=== PATIENT | male | born 1930 | race Caucasian/White ===

== ENCOUNTER 2017-03-28 00:42 | Emergency (ER) | payer BC, OTHER, MEDICAID ==
[~2017-03-28] VITALS: Ht 172.7 cm; Wt 77.1 kg
--- NOTE | 2017-03-28 01:49 | NUR ---
SUSAN ALMANZA, DNP AT BEDSIDE FOR PICC LINE INSERTION.
--- NOTE | 2017-03-28 02:16 | NUR ---
L UPPER ARM PICC LINE PLACED BY SUSAN ALMANZA DNP. PT TOLERATED PROCEDURE WELL.
--- NOTE | 2017-03-28 02:34 | NUR ---
Patient discharged to home in stable condition. Written and verbal after care instructions given. Patient son verbalizes understanding of instruction.
[2017-03-28 02:36] VITALS: BP 91/52
== END 2017-03-28 02:37 | disposition home or self-care (01) ==
LOC: ER 00:43
DX: C73 Malignant neoplasm of thyroid gland (principal); I10 Essential (primary) hypertension; Z85.850 Personal history of malignant neoplasm of thyroid; Z85.841 Personal history of malignant neoplasm of brain; Z45.2 Encounter for adjustment and management of vascular access device; Z51.5 Encounter for palliative care
CPT/HCPCS: A4606; C1751; Z7610